=== PATIENT | female | born 1960 | race Asian ===

== ENCOUNTER → 2024-10-19 09:15 | Outpatient (CLI) | payer MEDICARE, SELFPAY ==
[2024-10-19 09:53] LABS: Add Manual Diff / Slide Review NO; Basophils Absolute Auto 0 /uL (0-100); Basophils Percent Auto 0.5 % (0-2); Eosinophils Absolute Auto 0 /uL (0-450); Eosinophils Percent Auto 0.4 % (2-4); Hematocrit 38.9 % (36-46); Lymphocytes Absolute Auto 1700 /uL (1100-4500); Lymphocytes Percent Auto 30.9 % (25-40); Mean Corpuscular HGB Conc 33.5 % (30-36); Mean Corpuscular Hemoglobin 29.3 PG (26-34); Mean Corpuscular Volume 87.5 fL (80-100); Monocytes Absolute Auto 300 /uL (0-900); Monocytes Percent Auto 5.1 % (3-14); Neutrophils Absolute Auto 3500 /uL (1500-7000); Neutrophils Percent Auto 63.1 % (50-75); Platelet Count 364 X10^3/uL (150-400); Red Blood Cell Count 4.45 X10^6/uL (4.0-5.2); White Blood Cell Count 5.6 X10^3/uL (4.5-11.0)
[2024-10-19 10:43] LABS: Alanine Aminotransferase 23 IU/L (<35); Albumin 4.7 g/dL (3.5-5.0); Albumin Globulin Ratio 1.6 (1.0-2.8); Alkaline Phosphatase 53 U/L (38-126); Aspartate Aminotransferase 34 IU/L (14-36); BUN Creatinine Ratio 26.5 (6-22); Bilirubin Total 0.5 mg/dL (0.2-1.3); Blood Urea Nitrogen 18 mg/dL (7-17); Calcium 9.9 mg/dL (8.4-10.2); Carbon Dioxide 25 mmol/L (22-32); Chloride 104 mmol/L (98-107); Estimated Glomerular Filt Rate > 60 mL/min (>60); Glucose 103 mg/dL (80-110); HDL Cholesterol 68 mg/dL (40-60); HEMOLYSIS < 15 (0-50); Potassium 4.8 mmol/L (3.4-5.1); Sodium 139 mmol/L (137-145); Total Protein 7.7 g/dL (6.3-8.2); Triglycerides 112 mg/dL (35-150)
[2024-10-19 10:54] LABS: Cholesterol 360 mg/dL (140-199); LDL Cholesterol Calculated 270 mg/dL (<100)
[2024-10-19 11:14] LABS: TSH w/ Reflex to FT4 3.21 uIU/mL (0.47-4.68)
== END ==
PROVIDERS: PCP Family Medicine; Referring Provider Family Medicine; Visit Provider Family Medicine
DX: Z00.00 Encounter for general adult medical examination without abnormal findings (principal)
CPT/HCPCS: 36415; 80053; 80061; 84443; 85025

== ENCOUNTER 2024-11-17 08:53 | Day surgery (SDC) | payer MEDICARE, SELFPAY ==
--- NOTE | 2024-11-17 | PATH_ITS ---
[facility] Accession Number: [id number] No. of containers..01 Tissue . 01 Material submitted: . colon - CECAL POLYP . 01 Diagnosis: CECAL POLYP: Serrated polyp with focal crypt architectural features consistent with sessile serrated adenoma. STO 11/19/2024 [facility] Local . 01 Electronically signed: . Schuyler Olmedo MD, Pathologist NPI- [id number] . 01 Gross description: . CECAL POLYP: Received in formalin are 2 fragment(s) of wills, soft tissue measuring 0.2 x 0.2 x 0.2 cm to 0.4 x 0.4 x 0.3 cm submitted entirely in 1 cassette(s) /LYNN 11/19/2024 Local . 01 Pathologist provided ICD-10: D12.0 . 01 CPT . 711831 Specimen Comment: A courtesy copy of this report has been sent to [phone] Performed at: [address], [place], [place] [id number] MD Schuyler Olmedo MD Phone: [phone]
[2024-11-17 09:35] VITALS: BP 139/79; PULSE 67; RESP 24; TEMP 36.2; O2SAT 100
[2024-11-17] MEDS: LACTATED RINGERS 1,000 ML 42 ML IV (09:40)
--- NOTE | 2024-11-17 09:41 | PM.HP.IH.1 ---
History of Present Illness History of Present Illness Date Patient Seen: 11/17/24 Chief complaint: Colonoscopy Narrative: For screening colonoscopy [facility], [facility] Medical History Well adult exam Preventative health care Surgical History Anesthesia History of ankle surgery (~02/2007) Family History Mother Stroke Social History Smoking Status: Never smoker second hand exposure: No alcohol intake: never substance use type: does not use Meds Home Medications and Allergies Home Medications Medication Instructions Recorded Confirmed Type No Known Home Medications 11/17/24 11/17/24 History Allergies Allergy/AdvReac Type Severity Reaction Status Date / Time No Known Drug Allergies Allergy Verified 11/17/24 09:31 Exam Vital Signs (past 8 hours): - 11/17/24 09:35 Temperature 97.2 F L Pulse Rate 67 Respiratory Rate 24 Blood Pressure 139/79 Pulse Oximetry 100 Oxygen Delivery Method Room Air Oxygen Delivery Method Room Air Narrative Exam Narrative: Oropharynx free of lesions Chest clear to auscultation percussion Cardiac exam reveals no S3 or murmur Assessment & Plan Assessment & Plan narrative: For screening colonoscopy. Risks, benefits, alternatives have been explained. Time-Based Coding :: [TOTAL MINUTES] spent with patient and on the chart (including review of chart, obtaining history, exam, reviewing outside data, placing orders, documenting exam and treatment plan, and counseling patient) on [DATE]. PROFEE C Application Developer Document charge(s): No
--- NOTE | 2024-11-17 09:42 | PM.OP.COLON ---
Operative Date/Time/Diagnoses Date of procedure: 11/17/24 Pre-op diagnosis: See indication and findings Procedure & Clinicians Study performed: Colonoscopy Same procedure as scheduled: Yes Indications: First screening Surgeon: Cleveland Cordero Procedure Notes Procedure in detail: After informed consent was obtained the patient was placed in left lateral decubitus position. The video colonoscope was introduced the rectum slowly advanced cecum. On slow withdrawal mucosa was carefully examined. Preparation was good. The scope was removed. The patient tolerated procedure well. Blood loss none Complications none Sedation mac Findings 1. 1.2 cm sessile polyp at the appendiceal orifice. Endoscopic mucosal resection was performed by injecting with 3 cc of saline and then using a hot snare to removed completely. 2. Otherwise negative colonoscopy to cecum with the exception of internal hemorrhoids This definitely adenomatous and she will need follow-up in 3 years
[2024-11-17 10:51] VITALS: BP 113/72; PULSE 61; RESP 25; TEMP 36.1; O2SAT 100
[2024-11-17 10:57] VITALS: BP 119/78; PULSE 59; RESP 22; O2SAT 100
[2024-11-17 11:01] VITALS: BP 118/78; PULSE 57; RESP 21; TEMP 36.2; O2SAT 100
== END 2024-11-17 11:49 | disposition home or self-care (01) ==
PROVIDERS: PCP Family Medicine; Referring Provider Internal Medicine Gastroenterology; Visit Provider Internal Medicine Gastroenterology
PROC: 0DJD8ZZ Inspection of Lower Intestinal Tract, Via Natural or Artificial Opening Endoscopic (ICD-10-PCS; CPT 45378; principal; 2024-11-17 10:00)
DX: Z12.11 Encounter for screening for malignant neoplasm of colon (principal); D12.0 Benign neoplasm of cecum
CPT/HCPCS: 45390; J2704